=== PATIENT | female | born 1985 | race Caucasian/White ===

== ENCOUNTER → 2020-04-22 | Outpatient (REF) | payer OTHER | LOC: M LAB REF 13:51 | PROVIDERS: ATTEND Physician Assistant | DX: D48.5 Neoplasm of uncertain behavior of skin (principal) ==

== ENCOUNTER → 2020-05-13 | Outpatient (REF) | payer OTHER ==
[2020-05-13 13:56] LABS: PERCENT SATURATION 35.9 % (13.2-45.0)
[2020-05-13 14:04] LABS: FOLATE 16.2 NG/ML
== END ==
LOC: M LAB REF 12:19
PROVIDERS: ATTEND Registered Nurse
DX: D50.9 Iron deficiency anemia, unspecified (principal)

== ENCOUNTER → 2021-03-12 | Outpatient (REF) | payer OTHER | LOC: M LAB REF 15:57 | PROVIDERS: ATTEND Physician Assistant | DX: D49.2 Neoplasm of unspecified behavior of bone, soft tissue, and skin (principal) ==